=== PATIENT | female | born 1985 | race Caucasian/White ===

== ENCOUNTER 2018-11-06 14:58 | Emergency (ER) | payer OTHER ==
--- NOTE | 2018-11-06 15:38 | ED Physician Documentation ---
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 Patient reports that it is tender and swollen and has been draining spontaneously. Patient denies fever or other overlying skin changes, as well as any changes to the right arm. Patient does admit to this being her first trip to the ER and being anxious. No other improving or worsening factors noted. Review of Systems Constitutional: denies: Fever Skin: reports: Lesions PD PAST MEDICAL HISTORY - Past Medical History Other Past Medical History: Supportive hidradenitis - Past Surgical History Past Surgical History: No - Present Medications Home Medications: Ambulatory Orders Medication Instructions Recorded Confirmed Cephalexin [Keflex] 500 mg PO Q6H #28 capsule 11/06/18 Sulfamethox/Trimeth 800/160 1 each PO BID #14 tablet 11/06/18 [Bactrim Ds 800/160] - Allergies Allergies/Adverse Reactions: Allergies Allergy/AdvReac Type Severity Reaction Status Date / Time No Known Drug Allergies Allergy Verified 11/06/18 15:12 PD ED PE NORMAL - Vitals Vital signs reviewed: Yes (Tachycardic) - General General: Alert and oriented X 3, No acute distress (Anxious), Well developed/nourished - HEENT HEENT: Atraumatic, Moist mucous membranes - Cardiac Cardiac: Strong equal pulses. No: RRR (Tachycardic) - Respiratory Respiratory: No respiratory distress - Derm Derm: Normal color, Warm and dry, No rash, Other (Approximately dime sized area of abscess to right armpit without overlying erythema and 2 punctate areas without active drainage. No induration or fluctuance palpated, but tender to t he touch.) - Extremities Extremities: No deformity, No tenderness to palpate - Neuro Neuro: Alert and oriented X 3, No motor deficit, No sensory deficit - Psych Psych: Other (Anxious) Results - Vitals Vitals: Vital Signs - 24 hr 11/06/18 11/06/18 11/06/18 15:09 15:29 16:18 Temperature 37.2 C 36.8 C Heart Rate 120 H 131 H 114 H Respiratory 18 17 19 Rate Blood Pressure 168/87 H 158/83 H 139/74 H O2 Saturation 98 97 99 Oxygen O2 Source Room air PD MEDICAL DECISION MAKING - ED course Complexity details: considered differential, d/w patient ED course: Patient has a history of supportive hidradenitis which has likely recurred in the right armpit. Abscess has already spontaneously drained, but do feel the patient would benefit from oral antibiotics as an outpatient. Do not find other complications or concerns on exam. Patient is tachycardic, but feel this is related to discomfort and admitted anxiety on her behalf. Do not feel this is related to an underlying pathology and she does not require cardiac evaluation at this time. Discussed use of oral antibiotics, hygiene recommendations, return precautions, supportive cares. Patient voiced understanding and is comfortable with discharge plan. Departure - Departure Disposition: 01 Home, Self Care Clinical Impression: Suppurative hidradenitis Condition: Good Instructions: ED Infec Skin Cellulitis Follow-Up: your,doctor [Other] - Within 3 Days Prescriptions: Cephalexin [Keflex] 500 mg PO Q6H #28 capsule Sulfamethox/Trimeth 800/160 [Bactrim Ds 800/160] 1 each PO BID #14 tablet Comments: Please keep area clean and dry. Please avoid topicals until the wound is healed. Please take antibiotics as prescribed and recommend taking them with a small amount of food to avoid upset stomach. Please follow-up with your primary care physician in next 2 to 3 days and return to ED sooner if symptoms worsen or you have other concerns. Discharge Date/Time: 11/06/18 16:18
[2018-11-06 16:19] VITALS: BP 139/74
== END 2018-11-06 16:18 | disposition home or self-care (01) ==
LOC: ED 14:58
DX: L73.2 Hidradenitis suppurativa (principal)
CPT/HCPCS: 99283

== ENCOUNTER 2019-12-08 08:00 | Outpatient (CLI) | payer OTHER ==
[2019-12-08 19:29] LABS: TRICHOMONAS VAGINALIS DNA NEGATIVE (NEGATIVE)
== END 2019-12-08 23:59 | disposition home or self-care (01) ==
LOC: LAB.R 08:00
PROVIDERS: ATTEND Advanced Practice Midwife
DX: Z00.00 Encounter for general adult medical examination without abnormal findings (principal); Z11.3 Encounter for screening for infections with a predominantly sexual mode of transmission
CPT/HCPCS: 87491; 87591; 87661

== ENCOUNTER 2020-05-01 20:16 | Outpatient (CLI) | payer OTHER | END 2020-05-01 20:17 | disposition home or self-care (01) | LOC: COV 20:16 | PROVIDERS: ATTEND Family Medicine | DX: Z20.822 Contact with and (suspected) exposure to COVID-19 (principal) ==

== ENCOUNTER 2020-07-26 15:25 | Outpatient (CLI) | payer OTHER | END 2020-07-26 15:26 | disposition home or self-care (01) | LOC: RT 15:25 | PROVIDERS: ATTEND Obstetrics & Gynecology | DX: Z00.00 Encounter for general adult medical examination without abnormal findings (principal); R00.0 Tachycardia, unspecified | CPT/HCPCS: 93005 ==

== ENCOUNTER 2020-08-04 10:50 | Outpatient (CLI) | payer OTHER ==
[2020-08-04 11:49] LABS: ALBUMIN 3.8 g/dL (3.2-5.5); ALBUMIN/GLOBULIN RATIO 1.1 (1.0-2.2); ALKALINE PHOSPHATASE 96 IU/L (42-121); ALT ALANINE AMINOTRANSFERASE 21 IU/L (10-60); AST ASPARTATE AMINOTRANSFERASE 22 IU/L (10-42); BILIRUBIN,TOTAL 0.9 mg/dL (0.2-1.0); BUN - BLOOD UREA NITROGEN 14 mg/dL (6-20); CALCIUM 9.4 mg/dL (8.5-10.3); CARBON DIOXIDE - CO2 25 mmol/L (21-32); CHLORIDE 105 mmol/L (101-111); CHOL/HDL RATIO 2.1 (<4.4); CHOLESTEROL 121 mg/dL; GLUCOSE 91 mg/dL (70-100); HDL CHOLESTEROL 59 mg/dL; LDL CHOLESTEROL,CALCULATED 53 mg/dL; LDL/HDL RATIO 0.9 (<4.4); POTASSIUM 3.8 mmol/L (3.5-5.0); SODIUM 139 mmol/L (135-145); TOTAL PROTEIN 7.3 g/dL (6.7-8.2); TRIGLYCERIDES 46 mg/dL; VLDL CHOLESTEROL 9 mg/dL
[2020-08-04 11:56] LABS: PROLACTIN 8.73 ng/mL
[2020-08-04 12:19] LABS: FOLLICLE STIMULATING HORMONE 14.87 mIU/mL
[2020-08-04 12:39] LABS: ESTIMATED AVERAGE GLUCOSE 82 mg/dL (70-100); HEMOGLOBIN A1c% 4.5 % (4.27-6.07)
[2020-08-04 12:55] LABS: THYROID STIMULATING HORMONE < 0.08 uIU/mL (0.34-5.60)
[2020-08-04 12:56] LABS: CREATININE < 0.3 mg/dL (0.4-1.0)
[2020-08-04 13:36] LABS: FREE T4 (FREE THYROXINE) 5.67 ng/dL (0.58-1.64)
[2020-08-08 20:46] LABS: VARICELLA ZOSTER VZV AB IGG 447.7 index
== END 2020-08-04 10:51 | disposition home or self-care (01) ==
LOC: LAB 10:50
PROVIDERS: ATTEND Obstetrics & Gynecology
DX: Z00.00 Encounter for general adult medical examination without abnormal findings (principal); Z13.21 Encounter for screening for nutritional disorder; Z13.1 Encounter for screening for diabetes mellitus; N92.6 Irregular menstruation, unspecified; E05.90 Thyrotoxicosis, unspecified without thyrotoxic crisis or storm
CPT/HCPCS: 36415; 80053; 80061; 81599; 82306; 82670; 83001; 83036; 83498; 83520; 83721; 84146; 84403; 84432; 84439; 84443; 84479; 84481; 86376; 86762; 86787; 86800

== ENCOUNTER 2020-08-05 16:01 | Outpatient (CLI) | payer OTHER ==
--- NOTE | 2020-08-05 18:08 | Ultrasound Report ---
PROCEDURE: Pelvic w/Transvaginal INDICATIONS: IRREGULAR MENSES, PRECONCEPTION COUNSELING TECHNIQUE: Real-time scanning was performed of the pelvic organs, with image documentation. Additional endovagi nal scanning was necessary due to incomplete visualization of the adnexal and endometrial structures by transabdominal scanning. COMPARISON: None. FINDINGS: No pathologic free abdominal or pelvic fluid. Uterus: Uterus is normal in size at 5.9 x 3.1 x 4.2 cm. The endometrium measures 5 mm in combined t hickness. Multiple nabothian cysts in the cervix. Ovaries: The right ovary is not identified on today's exam. The left ovary measures 3.2 x 1.6 x 1.5 cm. Physiologic follicles. No suspicious adnexal mass. IMPRESSION: Unremarkable appearance of the uterus and left ovary. The right ovary is not identified on today's ex am. Reviewed by: Mark Torres DO on 08/05/2020 5:07 PM SEAN Approved by: Mark Torres DO on 08/05/2020 5:07 PM SEAN Station ID: [id number]
--- NOTE | 2020-08-07 10:11 | Ultrasound Report ---
PROCEDURE: Head or Neck Soft Tissue INDICATIONS: HYPERTHYROIDISM TECHNIQUE: Real time scanning was performed of the neck region of interest, with image documentation . COMPARISON: None. FINDINGS: The right thyroid lobe measures 6.9 x 2.5 x 2.6 cm. There is heterogeneous echotexture with increased vascularity. The isthmus measures 0.9 cm in thickness. The left thyroid lobe measures 7.4 x 2.5 x 2. 6 cm. There is heterogeneous echotexture with increased vascularity. No suspicious nodularity. IMPRESSION: Enlarged heterogeneous thyroid gland with increased vascularity suggestive of thyroiditis. This most commonly seen in the setting of Graves' disease. Recommend correlation with lab values. Reviewed by: Mark Torres DO on 08/05/2020 5:54 PM SEAN Approved by: Mark Torres DO on 08/05/2020 5:54 PM SEAN Station ID: [id number]
== END 2020-08-05 16:02 | disposition home or self-care (01) ==
LOC: DI 16:01
PROVIDERS: ATTEND Obstetrics & Gynecology
DX: Z00.00 Encounter for general adult medical examination without abnormal findings (principal); N92.6 Irregular menstruation, unspecified; E05.90 Thyrotoxicosis, unspecified without thyrotoxic crisis or storm

== ENCOUNTER 2020-08-31 07:26 | Outpatient (CLI) | payer OTHER | END 2020-08-31 07:27 | disposition home or self-care (01) | LOC: DI 07:26 | PROVIDERS: ATTEND Obstetrics & Gynecology | DX: Z00.00 Encounter for general adult medical examination without abnormal findings (principal); I51.7 Cardiomegaly; I34.0 Nonrheumatic mitral (valve) insufficiency; I87.8 Other specified disorders of veins | CPT/HCPCS: 93306 ==

== ENCOUNTER 2020-10-25 13:49 | Outpatient (CLI) | payer OTHER | END 2020-10-25 23:59 | disposition home or self-care (01) | LOC: LAB.N 13:49 | PROVIDERS: ATTEND Family Medicine | DX: R07.0 Pain in throat (principal) | CPT/HCPCS: 87070 ==

== ENCOUNTER 2021-01-11 08:00 | Outpatient (CLI) | payer OTHER ==
[2021-01-11 12:15] LABS: BASOPHILS % (AUTO) 0.3 %; EOSINOPHILS # (AUTO) 0.1 10^3/uL (0.0-0.7); EOSINOPHILS % (AUTO) 1.7 %; HCT - HEMATOCRIT 40.9 % (37.0-47.0); HGB - HEMOGLOBIN 13.5 g/dL (12.0-16.0); LYMPHOCYTES # (AUTO) 0.8 10^3/uL (1.5-3.5); LYMPHOCYTES % (AUTO) 24.3 %; MEAN CORPUSCULAR HEMOGLOBIN 28.7 pg (27.0-31.0); MEAN CORPUSCULAR VOLUME 86.8 fL (81.0-99.0); MEAN PLATELET VOLUME 10.9 fL (7.9-10.8); MONOCYTES # (AUTO) 0.5 10^3/uL (0.0-1.0); MONOCYTES % (AUTO) 13.6 %; NEUTROPHILS # (AUTO) 2.1 10^3/uL (1.5-6.6); NEUTROPHILS % (AUTO) 59.8 %; PLT - PLATELET COUNT 204 10^3/uL (130-450); RED BLOOD COUNT 4.71 10^6/uL (4.20-5.40); RED CELL DISTRIBUTION WIDTH 13.2 % (12.0-15.0); WHITE BLOOD COUNT 3.5 x10^3/uL (4.8-10.8)
[2021-01-11 12:31] LABS: ALBUMIN 4.2 g/dL (3.2-5.5); ALBUMIN/GLOBULIN RATIO 1.2 (1.0-2.2); BILIRUBIN,TOTAL 0.4 mg/dL (0.2-1.0); CALCIUM 8.7 mg/dL (8.5-10.3); CREATININE 0.4 mg/dL (0.4-1.0); POTASSIUM 3.9 mmol/L (3.5-5.0); TOTAL PROTEIN 7.8 g/dL (6.7-8.2)
== END 2021-01-11 23:59 | disposition home or self-care (01) ==
LOC: LAB.N 08:00
PROVIDERS: ATTEND Physician Assistant Medical
DX: U07.1 COVID-19 (principal)
CPT/HCPCS: 36415; 80053; 83690; 84443; 85025

== ENCOUNTER 2022-11-04 15:13 | Outpatient (CLI) | payer OTHER ==
--- NOTE | 2022-11-05 18:57 | SLEEP CARE CONSULTATION ---
Information from patient questionnaire entered by Milvia Olsen. I have reviewed and concur with the information entered by Milvia Olsen. This document represents the service I personally performed and the decisions made by me, Lars Garzon MD, [facility]. History of Present Illness Service Date and Time: 11/04/2022 1513 Reason for Visit: New patient Chief Complaint: reports: Snoring, Excessive daytime sleepiness, Fatigue Date of Onset: SINCE BEGINING OF 2022 Usual bedtime: 0930-10 PM Time it takes to fall asleep: 5-10MIN Snores at night: Yes Observed to quit breathing while asleep: No Sleeps alone due to snoring: No Number of times waking at night: 1-2 Reasons for waking at night: reports: Snoring, Bathroom, Other (DRY MOUTH) Toss, Turn, or Twitch while sleeping: Yes Recalls having dreams: Yes Usually gets out of bed at: 0445 WEEKDAYS 0700 WEEKENDS Feels refreshed in the morning: No Morning headache: No Sleepy or fatigued during the day: Yes Ever fallen asleep while driving: Yes Takes day naps: Yes Dreams during day naps: No Prior sleep studies: No Additional HPI information: I have the pleasure of seeing Ms. Bhagat today regarding the possibility of her having obstructive sleep apnea. As you know, she is a 37-year-old lady who complains of persistent fatigue and excessive daytime sleepiness for about a year. The patient tells me that she normally goes to bed around 9:30 - 10 pm, and it takes her approximately 5 - 10 minutes to fall asleep. She has been told that she snores loudly and irregularly at night. She has never been observed to stop breathing in her sleep. Her boyfriend can sleep in the same bed. She can recall waking up on the average of 1 - 2 times during the night. Most of the time she wakes up because of having to use the bathroom and dry mouth. She has awakened occasionally because of her own snoring, choking, and having to gasp for air. There is a lot of tossing and turning in her sleep. She has somniloquy (sleep talking) but not somnambulism (sleep walking). Usually, she can recall having dreams. In the morning she usually gets up out of bed around 4:45 - 7 a.m. not feeling refreshed nor rested. She usually does not have a morning headache. During the day she complains of feeling sleepy and fatigued. Her score on [place] Sleepiness Scale is 18 out of 24. She never has fallen asleep while driving nor has had any accident due to sleepiness. She usually does not take naps during the day. Upon falling asleep during the day she denies having vivid dreams. She has never had sleep paralysis, experienced cataplexy but reports symptoms of restless leg syndrome. She reports having impaired concentration during the day. 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 Patient is Single and lives in . Have you smoked in the past 12 months: No Years of smokin Quit date: 2012 Alcohol use: No Caffeine use: Yes Caffeine amount and frequency: 1-2 DAILY Family History Family history of sleep disordered breathing: Yes Family Hx Sleep Apnea: Father: Snoring, Sleep apnea - Treated Allergies and Home Medications Known drug allergies: No Drug allergies reviewed: Yes Home medication list reviewed: Yes Allergy and home medication list: Allergies No Known Drug Allergies Allergy (Verified 11/01/22 08:48) Review of Systems Weight gain over past 5 years: 60 Weight loss over past 5 years: 70 Cardiovascular: reports: high blood pressure, other (LEAKY VAVE) Respiratory: denies: shortness of breath, wheeze, sputum production, chronic cough, other Gastrointestinal: denies: heartburn, difficulty swallowing, nausea, vomitting, diarrhea, abdominal pain, other Urinary: denies: incontinence, frequency, urgency, impotence, other Neurological: denies: headaches, seizure, head trauma, disorientation, speech dysfunction, gait or balance problems, fainting or unconsciousness, other Psychiatric: denies: Attention Deficit Hyperactivity, anxiety, depression, mood disorder, claustrophobia, other Ear/Nose/Throat: reports: wisdom teeth removed Endocrine: reports: thyroid disease, sluggishness, too hot or cold, increased urination Musculoskeletal: reports: joint pain Immunologic: denies: sneezing, rash, itching, allergies to food or environment, other Physical Exam Vital signs obtained and entered by: MILVIA Paz MA Blood Pressure: 118/70 (LEFT ARM) Cuff size: regular Heart Rate: 72 O2 Saturation: 98 Height: 5 ft 4 in Weight: 239 lb Body Mass Index: 41.0 BMI Classification: Morbidly Obese Neck circumference: 15.5 Mood/affect: normal HEENT: No craniofacial malformation Nostrils: patent to airflow Turbinates: normal Septum: midline Mouth and throat: narrow oropharynx Soft palate: long Hard palate: normal Uvula: normal Uvula visualization: 50% Mallampati Class II Tongue: normal in size Tonsils: small Chin and jaw: normal size and position Neck: normal w/o lymphadenopathy or thyromegaly Heart: regular rate and rhythm Lungs: clear bilaterally Extremities: no edema or clubbing Neurologic: intact Impression and Plan IMPRESSION: 1. Obstructive Sleep Apnea-Hypopnea Syndrome, as evident by history of loud and irregular snoring, unrefreshed sleep, cognitive impairment, and daytime hypersomnolence. Narrow oropharynx and obesity are common predisposing factors for obstructive sleep apnea-hypopnea syndrome. Untreated obstructive sleep apnea can also cause hypertension. I recommend proceeding to polysomnography to confirm the diagnosis and to assess severity. If she has significant sleep disordered breathing, a manual CPAP titration study will also be performed to find the optimal treatment pressure. I informed the patient of what the sleep studies involve and after some discussion, she agreed to proceed. Plan: 1. Schedule polysomnography and manual CPAP/BiPAP titration study. 2. Avoid long distance driving or when feeling sleepy. 3. Avoid alcohol, sedative and muscle relaxant around bedtime. 4. Attempt to lose weight. 5. Return for follow up after the sleep studies. Counseling Topics: Weight control Follow up with Sleep Care in: 1-2 months Visit Type: In Office Time Spent with Patient (minutes): 15 Provider Statement: I spent 100% of the Face to Face Visit with the patient with greater than 50% spent counseling the patient and coordination of care.
[2022-11-05 19:01] VITALS: BP 118/70
== END 2022-11-04 15:14 | disposition home or self-care (01) ==
LOC: SC 15:13
PROVIDERS: ATTEND Internal Medicine Pulmonary Disease
DX: G47.10 Hypersomnia, unspecified (principal); R53.83 Other fatigue; R06.83 Snoring; G47.8 Other sleep disorders; I10 Essential (primary) hypertension; I51.9 Heart disease, unspecified; E66.01 Morbid (severe) obesity due to excess calories; Z68.41 Body mass index [BMI] 40.0-44.9, adult
CPT/HCPCS: 99202; 99212